=== PATIENT | female | born 1985 ===

== ENCOUNTER 2017-12-20 00:37 | Inpatient (IN) | payer MEDICAID ==
[2017-12-20] MEDS ORDERED: OLIVE OIL 118 ML BTL ONE (00:50)
[2017-12-20] MEDS ORDERED: LIDOCAINE 1% 300 MG/30 ML SDV ONE (00:50)
[2017-12-20] MEDS ORDERED: AMMONIA AROMATIC 1 EACH AMP IH ONE (00:50)
[2017-12-20] MEDS ORDERED: OXYTOCIN 10 UNIT/ML VIAL ONE (00:51)
[2017-12-20] MEDS ORDERED: MISOPROSTOL 200 MCG TAB PR PRN (01:01)
[2017-12-20] MEDS ORDERED: OLIVE OIL 118 ML BTL MISC PRN (01:01)
[2017-12-20] MEDS ORDERED: LR 1,000 ML IV PRN (01:01)
[2017-12-20] MEDS ORDERED: EPSOM SALT 454 GM TP PRN (01:01)
[2017-12-20] MEDS ORDERED: TERBUTALINE SULFATE 1 MG/ML VIAL IV PRN (01:01)
[2017-12-20] MEDS ORDERED: OXYTOCIN 20 UNIT in LR 1,000 ML IV PRN (01:01)
--- NOTE | 2017-12-20 01:05 | OBPROG ---
Labor Progress Note Assessment/Plan: Assessment:cat 2 fhr contractions q 3-4 minutes + bloody show GBS negative al/100/0 denies leaking of fluid Plan:expectant management of labor 12/20/17 01:03 Subjective/Intrapartum Course: 12/20/17 01:03 regular contractions since 1100. denies srom. + bloody show - SVE Dilation (cm): 9 Effacement (%): 100 Station: 0 Membranes: Intact - Contraction Pattern Assessment Current Contraction Pattern: Regular - FHR Assessment Brady FHR (bpm): 130 FHR Pattern Variability: Moderate FHR Category: 2 - Physical Exam General Appearance: WD/WN, alert, no apparent distress Respiratory: chest non-tender, lungs clear, normal breath sounds Cardiac/Chest: regular rate, rhythm Abdomen: normal bowel sounds Extremities: normal range of motion, Vamsi's sign (negative bilaterally) DTR- Lower Extremities: Knee (R): 1+, Knee (L): 1+ (no clonus) Skin: normal color, warm/dry Neuro/Psych: no motor/sensory deficits, alert, normal mood/affect, oriented x 3 ICD10 Worksheet Patient Problems: Problems Problem Status Onset term labor Acute
[2017-12-20] MEDS ORDERED: MEASLES,MUMPS&RUBELLA VACC/PF 0.5 ML VIAL SC ONE (02:38)
[2017-12-20] MEDS ORDERED: HYDROCODONE/APAP 5/325 TAB PO PRN (02:38)
[2017-12-20] MEDS ORDERED: HYDROCORTISONE 0.5% CREAM TP PRN (02:38)
[2017-12-20] MEDS ORDERED: SIMETHICONE 80 MG TAB CHEW PO PRN (02:38)
[2017-12-20] MEDS ORDERED: ACETAMINOPHEN 325 MG TAB PO PRN (02:38)
--- NOTE | 2017-12-20 02:41 | OBDEL ---
Info Type: Vaginal Presentation at Delivery: Vertex L&D Analgesia/Anesthesia Type: None GBS+: No - Hospital Course Intrapartum: 12/20/17 01:03 regular contractions since 1100. denies srom. + bloody show Indications for Delivery: Spontaneous Labor, SROM Vaginal Delivery - Delivery Provider Delivery Physician/CNM: Dolores Medina Proctoring Provider: Bret Nicole - Labor and Delivery Onset of Contractions Date: 12/19/17 Onset of Contractions Time: 11:00 Onset of Contractions Type: Spontaneous Rupture of Membranes Date: 12/19/17 Rupture of Membranes Time: 18:30 Rupture of Membranes Type: Spontaneous Amniotic Fluid Color: Clear Dilation Complete Date: 12/20/17 Dilation Complete Time: 02:00 Placenta Delivery Date: 12/20/17 Placenta Delivery Time: 02:27 Total Hours of Labor: 15 Non-surgical Procedures: Amniotomy, Other (Specify) (forebag for clear fluid) Vaginal Sponge Count Correct: Yes Vaginal Needle Count Correct: Yes Vaginal Sweep Performed: No EBL: 250 Delivery Events: Nuchal Cord - Medications Labor Augmentation/Induction Methods Used: None [place] Data RED: 12/27/17 Gestational Age: 39 week(s) and 0 day(s) Brady Delivery Date: 12/20/17 Delivery Time: 02:18 Sex of Infant: Male Score (1 Min): 8 Score (5 Min): 9 ICD10 Worksheet Patient Problems: Problems Problem Status Onset term labor Acute
--- NOTE | 2017-12-20 02:43 | OBPROG ---
Labor Progress Note Assessment/Plan: Assessment:cat 2 fhr contractions q 3-4 minutes + bloody show GBS negative al/100/0 denies leaking of fluid Plan:expectant management of labor 12/20/17 01:03 Subjective/Intrapartum Course: edc 12/27/2017 came in with complaints of labor 1100 srom clear fluid 1830 forebag rom 0200 10 cm 0200 intact perineum boy no iv no post meds minimal bleeding post 12/20/17 01:03 regular contractions since 1100. denies srom. + bloody show 12/20/17 02:42 - SVE Membranes: Intact Amniotic Fluid Color: Clear Dilation Complete Date: 12/20/17 Dilation Complete Time: 02:00 - Contraction Pattern Assessment Current Contraction Pattern: Regular - Procedures Non-surgical Procedures: Amniotomy, Other (Specify) (forebag for clear fluid) ICD10 Worksheet Patient Problems: Problems Problem Status Onset term labor Acute
--- NOTE | 2017-12-20 03:00 | GHP ---
[f rep st] HISTORY AND PHYSICAL DATE OF ADMISSION: 12/20/2017 HISTORY: The patient is a 32-year-old, 3, para 2, with an EDC of 12/27/2017, which gives her a gestational age of 39 weeks, who comes in with complaints of regular contractions since 11:00 am o n 12/19/2016. On admission to Labor and Delivery, she is anterior lip, 100% effaced, 0 station, ceph alic. The patient is a transfer of care at 32 weeks. The patient has positive bloody show. States feeling positive movement. Denies spontaneous rupture of membranes. MEDICAL HISTORY: Autoimmune vitiligo, eczema, depression mild , history of HSV 1, diastasi s recti, rubella nonimmune. SOCIAL HISTORY: Patient is to her . Has 2 other children at home. Denies tobacco. Denies drug use. ALLERGIES: Patient is not allergic to any medications. MEDICATIONS: vitamins, Tylenol p.r.n., Unisom p.r.n. FAMILY HISTORY: Noncontributory. GYNECOLOGICAL HISTORY: OCP use previously. SURGICAL HISTORY: Previous wisdom teeth extraction, endoscopy. Has woken up while under anesthesia x3 times. LABORATORIES: The patient is A positive, antibody negative. RPR is nonreactive. Rubella is nonimmu ne. Hepatitis is negative. HIV is negative. TSH was within normal limits. Gonorrhea and chlamydia were negative. Quad screen was negative. 1 hour GTT was within normal limits. GBS was negative. PREVIOUS HISTORY: Patient had a female in 12/2012, 6 pounds 12 ounces, 41 weeks, 6-7 hours of labor vaginally. In 01/2015, a male, 8 pounds 6 ounces, 40 weeks, 6-7 hours vaginally. OTHER GYNECOLOGICAL HISTORY: Menarche 16 to 17 years old. PHYSICAL ASSESSMENT: GENERAL: The patient is awake, alert, and oriented x3. LUNGS: Clear bilatera lly. ABDOMEN: Bowel sounds are positive in all 4 quadrants. EXTREMITIES: DTRs are 1+ bilaterally. Homans signs are negative bilaterally. PLAN OF CARE: 1. GBS negative. 2. Expectant management of labor. 3. Consult physician, Dr. Bret Nicole, with plan of care as needed. /[id number]/MODL
[2017-12-20] MEDS: IBUPROFEN 600 MG TAB PO PRN ×4 (03:18→21:40)
[2017-12-20] MEDS: DOCUSATE SODIUM 100 MG CAP PO PRN ×2 (09:45→21:41)
[2017-12-21] MEDS: IBUPROFEN 600 MG TAB PO PRN ×3 (03:04→23:15)
--- NOTE | 2017-12-21 11:19 | OBPP ---
Progress Note Assessment/Plan: Assessment: 32 y/o PPD #1 s/p doing well. Plan: Will give APNO cream and Ibuprofen Rx. Baby is going to have a circumcision @ 12:00 and they will decide on discharge this pm. 12/21/17 11:18 Subjective/ Course: 12/21/17 11:16 Pt is doing well this am. She has cramping and some perineal pain controlled with Ibuprofen. She has min lochia and is ambulating, voiding without difficulty. Nursing is going well she has sore nipples and is working on a latch. Milk is starting to come in. She has not decided if they are ready to go home today. Objective: Temp Pulse Resp BP Pulse Ox 36.7 C 95 20 117/60 96 12/20/17 20:00 12/20/17 20:00 12/20/17 20:00 12/20/17 20:00 12/20/17 20:00 Uterine Position/Fundal Height: Umbilicus -2 Uterine Tone: Firm Physical Exam - Physical Exam General Appearance: WD/WN, alert, no apparent distress Neck: non-tender, full range of motion, supple Respiratory: chest non-tender, lungs clear, normal breath sounds Cardiac/Chest: regular rate, rhythm Abdomen: normal bowel sounds Extremities: swelling (no), Vamsi's sign (neg)
--- NOTE | 2017-12-21 11:20 | OBGCSDC ---
General Delivery Information - General Info : 3 Para: 3 Abortions: 0 Type: Vaginal L&D Analgesia/Anesthesia Type: None Admission Date: 12/20/17 - Hospital Course Intrapartum: edc 12/27/2017 came in with complaints of labor 1100 srom clear fluid 1830 forebag rom 0200 10 cm 0200 intact perineum boy no iv no post meds minimal bleeding post 12/20/17 01:03 regular contractions since 1100. denies srom. + bloody show 12/20/17 02:42 : 12/21/17 11:16 Pt is doing well this am. She has cramping and some perineal pain controlled with Ibuprofen. She has min lochia and is ambulating, voiding without difficulty. Nursing is going well she has sore nipples and is working on a latch. Milk is starting to come in. She has not decided if they are ready to go home today. Vaginal - Delivery Provider Delivery Physician/CNM: Dolores Medina - Diagnosis Labor: Spontaneous Rupture of Membranes Type: Spontaneous Amniotic Fluid Color: Clear Delivery Events: Nuchal Cord - Procedures Non-surgical Procedures: Amniotomy, Other (Specify) (forebag for clear fluid) - Delivery Non-surgical Procedures: Amniotomy, Other (Specify) (forebag for clear fluid) Data RED: 12/27/17 Gestational Age: 39 week(s) and 1 day(s) Brady Delivery Date: 12/20/17 Delivery Time: 02:18 Sex of Infant: Male Score (1 Min): 8 Score (5 Min): 9 Discharge Information - Discharge Information Prescriptions: Ibuprofen [Motrin (*)] 600 mg PO Q6HRS PRN #30 tab PRN Reason: post , inflammation Condition: Good Instruction/Follow Up: Four Weeks, Six Weeks
[2017-12-21 17:06] LABS: PLATELET COUNT 261 10^3/uL (150-400)
[2017-12-21 20:53] VITALS: PULSE 84
[2017-12-22] MEDS: IBUPROFEN 600 MG TAB PO PRN (05:43)
[2017-12-22] MEDS ORDERED: MEASLES,MUMPS&RUBELLA VACC/PF 0.5 ML VIAL SC ONE (09:00)
[2017-12-22 09:13] VITALS: BP 114/66; RESP 16; TEMP 97.3; O2SAT 95
--- NOTE | 2017-12-22 11:11 | OBGCSDC ---
General Delivery Information - General Info : 3 Para: 3 Abortions: 0 Type: Vaginal L&D Analgesia/Anesthesia Type: None Admission Date: 12/20/17 Labs: Hct 40.5 % (38.0-47.0) 12/21/17 17:00 - Hospital Course Intrapartum: edc 12/27/2017 came in with complaints of labor 1100 srom clear fluid 1830 forebag rom 0200 10 cm 0200 intact perineum boy no iv no post meds minimal bleeding post 12/20/17 01:03 regular contractions since 1100. denies srom. + bloody show 12/20/17 02:42 : 12/21/17 11:16 Pt is doing well this am. She has cramping and some perineal pain controlled with Ibuprofen. She has min lochia and is ambulating, voiding without difficulty. Nursing is going well she has sore nipples and is working on a latch. Milk is starting to come in. She has not decided if they are ready to go home today. 12/22/17 11:08 S) Pt doing well, desires d/c home at this time. elevated TSH, will start levothyroxine 50mcg QD, will plan to recheck TFT @ 6wks PP. Pt doing well, reports min pain and bleeding. she is ambulating and voiding without difficulty. She is . O) VSS, afebrile constitutional: WNWF, A&Ox3 HEENT: normocephalic, atraumatic, supple Heart: RRR, No murmur Chest: CTA-B Abdomen: Soft, nontender Uterus: Firm at U-2 Lochia: Minimal rubra Perineum: Intact, healing well Extremities: Trace edema, and negative Vamsi's sign Neuro: Grossly normal A) 32-year-old S/P PPD#2 hypothyroid (new dx) P) Discharge home today start levothyroxine 50mcg QD Continue Pelvic rest x6wks Discussed danger signs (infection, preeclampsia, depression, heavy bleeding, etc ) RTO in 4/6 weeks Vaginal - Delivery Provider Delivery Physician/CNM: Dolores Medina - Diagnosis Labor: Spontaneous Rupture of Membranes Type: Spontaneous Amniotic Fluid Color: Clear Delivery Events: Nuchal Cord - Procedures Non-surgical Procedures: Amniotomy, Other (Specify) (forebag for clear fluid) - Delivery Non-surgical Procedures: Amniotomy, Other (Specify) (forebag for clear fluid) [place] Data RED: 12/27/17 Gestational Age: 39 week(s) and 2 day(s) Brady Delivery Date: 12/20/17 Delivery Time: 02:18 Sex of Infant: Male Score (1 Min): 8 Score (5 Min): 9 Discharge Information - Discharge Information Prescriptions: Ibuprofen [Motrin (*)] 600 mg PO Q6HRS PRN #30 tab PRN Reason: post , inflammation Condition: Good Instruction/Follow Up: Four Weeks, Six Weeks
== END 2017-12-22 14:30 | disposition home or self-care (01) | DRG 775 ==
LOC: FLD 00:37 → OBSVTOIN 01:01 → FOB 04:26
PROVIDERS: ADMIT Advanced Practice Midwife; ATTEND Obstetrics & Gynecology
PROC: 10E0XZZ Delivery of Products of Conception, External Approach (ICD-10-PCS; principal; 2017-12-20)
DX: O69.81X0 Labor and delivery complicated by cord around neck, without compression, not applicable or unspecified (principal); O99.284 Endocrine, nutritional and metabolic diseases complicating childbirth; E03.9 Hypothyroidism, unspecified; Z3A.39 39 weeks gestation of pregnancy; Z37.0 Single live birth
CPT/HCPCS: J2590